=== PATIENT | female | born 1990 | race Caucasian/White ===

== ENCOUNTER 2022-01-31 11:36 | Emergency (ER) | payer MEDICAID, SELFPAY ==
[2022-01-31 11:37] VITALS: BP 135/86; PULSE 77; RESP 18; TEMP 36.8; O2SAT 97; BMI 29.2
--- NOTE | 2022-01-31 12:03 | ED.VIS.LOWEX ---
HPI History of Present Illness Chief Complaint: Lower Extremity Injury Detail of Chief Complaint: Left ankle injury Informant: patient Onset/Context/Timing Onset: Yesterday Current Severity: Moderate Maximum Severity: Moderate Narrative Narrative: Patient presents secondary to left ankle injury. She states she rolled her left ankle last evening. She has pain mostly over the lateral malleolus with some radiation across the top of her ankle. She denies any other injury. She did take ibuprofen prior to arrival. She was observed ambulating to the room with antalgic gait. PFSH PFSH Medical History no medical history no medical history Home Medications Ibuprofen [Motrin] 800 mg PO TID PRN PRN Pain 03/08/17 [History Last Taken 03/08/17 10:00] amoxicillin 875 mg-potassium clavulanate 125 mg tablet 875 mg PO Q12H ##20 03/08/17 [Rx Last Taken Unknown] hydrocodone-acetaminophen 5-325mg 5mg-325mg 1 tab PO Q4H PRN PRN Pain ##12 03/08/17 [Rx Last Taken Unknown] lidocaine HCl 2 % mucosal solution (Lidocaine Viscous) 10 ml PO 4X/DAY PRN PRN Mouth Irritation #180 mL 03/08/17 [Rx Last Taken Unknown] penicillin V potassium 500 mg tablet 500 mg PO TID 03/08/17 [History Last Taken Unknown] naproxen 500 mg tablet (Naprosyn) 500 mg PO BID PRN pain #20 tabs 01/31/22 [Rx Last Taken Unknown] Allergy/AdvReac Type Severity Reaction Status Date / Time Sulfa (Sulfonamide Allergy Hives Verified 01/31/22 11:37 Antibiotics) Social History Smoking Status: Current every day smoker tobacco type: cigarettes ROS ROS ED Constitutional Constitutional ED: Denies chills or fever(s) Eyes Eyes: Denies change in vision or discharge from eye(s) ENT ENT ED: Denies discharge from eye(s), rhinorrhea or sore throat Cardiovascular Cardiovascular: Denies chest pain or palpitations Respiratory/Chest Respiratory/Chest: Denies cough or dyspnea Gastrointestinal Gastrointestinal: Denies abdominal pain, nausea or vomiting Musculoskeletal Musculoskeletal: Reports extremity pain; Denies back pain Integumentary Denies Abrasions or rash Neurologic Neurologic: Denies headache(s) or weakness Psychiatric Psychiatric: Denies anxiety or depression Allergic/Immunologic Allergic/Immunologic ED: Denies lip swelling or urticaria EXAM Physical Exam Const Vital Signs: 01/31/22 11:37 Temperature 98.2 F Temperature Source Temporal Pulse Rate 77 Respiratory Rate 18 Blood Pressure 135/86 H Blood Pressure Mean 102 Pulse Ox 97 Oxygen Delivery Method Room Air Positive well nourished and well developed General Appearance ED: well developed HEENT Reports normocephalic and head/scalp atraumatic Eyes PERRL and EOMs intact bilaterally Neck supple Chest Wall inspection of chest normal and palpation of chest normal Resp normal respiratory effort and clear to auscultation bilaterally Cardio regular rate and regular rhythm GI normal to inspection, nondistended, normoactive bowel sounds Palpation: soft Back/Spine no CVA tenderness Extremity Extremity Narrative: Tenderness palpation left ankle. Edema noted over the lateral malleolus. No tenderness to the foot itself. Good distal pulses. No tenderness at the knee or hip. Neuro oriented x3 and no sensory deficits noted Sensorium / Orientation: alert Motor Exam: strength 5/5 throughout Psych mental status grossly normal Skin no rashes or lesions noted MDM MDM MDM Narrative Medical decision making narrative: Left ankle x-ray obtained. Patient had taken ibuprofen prior to arrival. Treatment and Re-Evaluation Narrative: Left ankle x-ray per my interpretation shows no acute fracture. Test results discussed with the patient. She will be given a stirrup ankle splint and crutches. She may weight-bear as tolerated. I will write her for naproxen. Return instructions provided. Discharge Plan Triage Chief Complaint: Lower Extremity Injury ED Provider: Robyn Michael Dx/Rx/DC Orders Clinical Impression: Left ankle sprain Instructions: ED Ankle Sprain (Adult) Prescriptions: New naproxen [Naprosyn] 500 mg tablet 500 mg PO BID PRN (Reason: pain) Qty: 20 0RF No Action penicillin V potassium 500 MG tablet 500 mg PO TID Ibuprofen [Motrin] 800 MG tablet 800 mg PO TID PRN PRN (Reason: Pain) hydrocodone-acetaminophen 1 TABLET tablet 1 tab PO Q4H PRN PRN (Reason: Pain) Qty: 12 0RF amoxicillin-pot clavulanate 875 MG tablet 875 mg PO Q12H Qty: 20 0RF lidocaine HCl [Lidocaine Viscous] 180 ML solution 10 ml PO 4X/DAY PRN PRN (Reason: Mouth Irritation) Qty: 180 0RF Primary Care Provider: Care Physician,No Primary Referrals: Dennis Will MD [Med Staff - Interactive Marketing Strategist] - As Needed Care Physician,No Primary [Primary Care Provider] - Disposition Disposition: Home, Self Care
--- NOTE | 2022-01-31 12:08 | RAD_ITS ---
STUDY: X-RAY - LEFT ANKLE REASON FOR EXAM: Female, 31 years old. injury TECHNIQUE: 3 view(s) of the ankle. COMPARISON: None. FINDINGS: Normal visualized distal tibia and fibula. Normal medial and lateral malleoli. Normal tibiotalar articulation and ankle mortise. Normal visualized talus and calcaneus. The visualized subtalar, talonavicular, calcaneocuboid and tarsal articulations are normal. There is no demonstrated fracture. Mild soft tissue swelling is present in the lateral side of the ankle. RAD/Ankle min 3 Views IMPRESSION: 1. Mild lateral soft tissue swelling Electronically Signed: Dexter Nix MD at 12:45 EDT ,
[2022-01-31 13:01] VITALS: BP 117/81; PULSE 65; RESP 16; O2SAT 100
== END 2022-01-31 13:07 | disposition home or self-care (01) ==
PROVIDERS: Emergency Provider Emergency Medicine; Visit Provider Emergency Medicine
DX: S93.402A Sprain of unspecified ligament of left ankle, initial encounter (principal); F17.210 Nicotine dependence, cigarettes, uncomplicated; Z79.899 Other long term (current) drug therapy; X50.1XXA Overexertion from prolonged static or awkward postures, initial encounter
CPT/HCPCS: 73610; 99284